=== PATIENT | male | born 1980 | race Caucasian/White ===

== ENCOUNTER 2021-08-10 17:16 | Emergency (ER) | payer OTHER, SELFPAY ==
--- NOTE | ~2021-08-10 | XR_ITS ---
EXAMINATION: XR HAND, RIGHT CLINICAL INFORMATION: Puncture wound to the base of the thumb anteriorly. COMPARISON: None TECHNIQUE: PA, lateral, and oblique views of the right hand. FINDINGS: No radiopaque foreign body. No air in the soft tissue. No fracture. No dislocation. Bone and joint are normal. XR/XR hand RT min 3V IMPRESSION: Normal right hand.
[2021-08-10 17:50] VITALS: BP 151/99; PULSE 75; RESP 18; TEMP 37; O2SAT 96; BMI 28.8
--- NOTE | 2021-08-10 19:15 | ED_ITS ---
HPI - Extremity Problem General Chief complaint: Extremity Injury, Upper Stated complaint: cut on palm of the right hand Time Seen by Provider: 08/10/21 18:59 Source: patient Mode of arrival: ambulatory Limitations: no limitations History of Present Illness HPI Narrative: PATIENT GOT PUNCTURE WOUND ON THE RIGHT ARM BY A DRILL BIT WHILE AT WORK, NO OTHER INJURY NO FOREIGN-BODY PATIENT DOES NOT REMEMBER HIS LAST TE TANUS SHOT Related Data Previous Rx's Medication Instructions Recorded amoxicillin 875 mg-potassium 1 tab PO BID #20 tab 08/10/21 clavulanate 125 mg tablet (Augmentin) Allergies Allergy/AdvReac Type Severity Reaction Status Date / Time No Known Allergies Allergy Verified 08/10/21 17:57 PMFSH Past Medical History Medical History (Updated 08/10/21 @ 19:17 by Tre Curiel MD) No pertinent past medical history Surgical History (Updated 08/10/21 @ 17:55 by Janice Malin) No pertinent past surgical history Social History Social History Advance Directives: No Advance Directives Information Provided: No Physical Exam Vital Signs: Vital Signs: Last Vital Signs Temp 98.6 F 08/10/21 17:50 Pulse 75 08/10/21 17:50 Resp 18 08/10/21 17:50 BP 151/99 H 08/10/21 17:50 Pulse Ox 96 08/10/21 17:50 Body Mass Index 28.8 Const: General: comfortable and no acute distress Extrem: Hand/finger images: 1. Puncture wound Right thenar eminence no bony deformity neurovascular intact MDM - Extremity (Nontraumatic) MDM Narrative Medical decision making narrative: Patient with puncture wound right thenar eminence x-ray negative for fracture foreign body part clean tetanus shot was given discharge patient home on antibiotics Augmentin Discharge Plan Discharge Clinical Impression: Puncture wound of right hand Qualifiers: Encounter type: initial encounter Foreign body presence: without foreign body Qualified Code(s): S61.431A - Puncture wound without foreign body of right hand, initial encounter Patient Disposition: Home, Self-Care Instructions: Puncture Wound (ED) Additional Instructions: Local care as advised Take antibiotics as prescribed You have received tetanus shot today which is good for 7-10 years Prescriptions: New amoxicillin-pot clavulanate [Augmentin] 875-125 mg tablet 1 tab PO BID Qty: 20 RF: 0 Interventions: ED Discharge Assessment Last Done: 08/10/21 19:31 Discharge Date/Time: 08/10/21 19:33
[2021-08-10] MEDS: Amoxicillin/Potassium Clav 875 MG TABLET PO (19:25)
[2021-08-10] MEDS: Diphth,Pertus(ACell),Tet Adult 0.5 ML SYRINGE IM (19:25)
== END 2021-08-10 19:33 | disposition home or self-care (01) ==
PROVIDERS: Emergency Provider Internal Medicine; PCP Physical Medicine & Rehabilitation
DX: S61.431A Puncture wound without foreign body of right hand, initial encounter (principal); W31.1XXA Contact with metalworking machines, initial encounter; Y93.89 Activity, other specified; Y92.89 Other specified places as the place of occurrence of the external cause; Y99.0 Civilian activity done for income or pay
CPT/HCPCS: 73130; 90471; 90715; 99284

== ENCOUNTER 2025-02-08 15:18 | Outpatient (AMB) | payer OTHER, SELFPAY ==
--- NOTE | 2025-02-08 15:20 | MHC.OFFVIS ---
Vital Signs 02/08/25 15:31 Height 6 ft 2 in Weight 230 lb BMI 29.5 BP 128/94 H Blood Pressure Location Lt brachial Position Sitting Pulse 78 Pulse Source Pulse Oximeter Pulse Oximetry (%) 97 Oxygen Delivery Method Room Air Intake Visit Reasons: Colonoscopy Screening Intake Note: NEW PATIENT for initial colo screening Chief Complaint; Pt does report increasing frequency of reflux which he has not had until recently. No specific triggers identified. Pt denies any additional sx or concerns at this time. No pertinent FMHx. Patient is taking an antihypertensive medication but is unsure as to the specific medication. Underwriting Manager Required: No Accompanied by: Self / Same As Patient Allergies No Known Allergies Allergy (Verified 02/08/25 15:21) HPI HPI Colonoscopy Screening: Details: 44 year old? male with no significant past medical history is here today for pre colonoscopy screening.? Patient was sent to us by his PCP.? This is his first colonoscopy screening.? Patient denies any gastrointestinal symptoms in the past or at present.? , however he does report occasional acid reflux depending on what he eats. Denies any personal or family history of gastrointestinal disease, colon polyps, or CRC.? Patient never had anesthesia in the past.? Negative for history of sleep apnea.? Denies any history of cardiac, renal, pulmonary, or hepatic disease.?? No history of infectious? diseases like hepatitis A, B, C, HIV or tuberculosis.? Patient is not on any anticoagulation [facility] Medical History HTN (hypertension) No pertinent past medical history Surgical History No pertinent past surgical history Family History Maternal Grandfather Prostate cancer Review of Systems Const Denies weight gain and Denies weight loss ENT Reports no additional complaints, Denies dysphagia and Denies odynophagia Card Reports no additional complaints Resp Reports no additional complaints GI Denies abdominal pain, Denies belching, Denies melena, Denies bloating, Denies change in bowel habits, Denies dysphagia, Denies excessive flatus, Denies dyspepsia, Reports heartburn (Occasional), Denies diarrhea, Denies loose stools, Denies nausea, Denies odynophagia and Denies vomiting Reports no additional complaints Musc Reports no additional complaints Neuro Reports no additional complaints Psych Reports no additional complaints Endo Reports no additional complaints Physical Exam Vital Signs: Last Vital Signs Pulse 78 02/08/25 15:31 BP 128/94 H 02/08/25 15:31 Pulse Ox 97 02/08/25 15:31 Oxygen Delivery Method Room Air 02/08/25 15:31 BMI result Body Mass Index 29.5 Const General: healthy appearing, no acute distress and well developed Nutritional Appearance: well nourished and obese Orientation/consciousness: patient oriented x3 Resp Effort & Inspection: normal respiratory effort, able to speak in complete sentences, no tracheal deviation and symmetric chest movement Auscultation: clear to auscultation bilaterally Cardio Rate: regular rate GI Inspection: Yes normal to inspection, No distended and Yes obesity Palpation (GI): Soft to palpation, not firm, nontender and No hepatosplenomegaly present Auscultation: normal bowel sounds General: Yes no CVA tenderness Back/Spine/Pelvis Back: no CVA tenderness Skin General skin exam: elasticity normal, turgor normal and dry skin Neuro General: patient oriented x3 Psych Appearance: grossly normal Mental Status: mental status grossly normal Assessment & Plan Assessment & Plan (1) Screen for colon cancer: Code(s): Z12.11 - Encounter for screening for malignant neoplasm of colon Plan Patient denies any GI, cardiac or respiratory symptoms.? However occasional acid reflux. Patient will try to avoid dietary triggers and late night snacking. Staying upright for minimum 3 hours after meals discussed with patient he will call us if his symptoms will get worse. Denies any issues with anesthesia in the past.? Denies any history of sleep apnea.? No history infectious diseases in the past or present.? Not on any anticoagulation therapy.? No family or personal history of colon cancer or polyps.? Patient denies melena, hematochezia, unintentional weight loss or ribbon like stools.? Discussed at length the pre-procedure,? prep, diet & medications as well as what to expect prior, during and after the procedure.?? Stressed the importance of good bowel prep.? Recommended the use of Vaseline or Calmoseptine OTC & baby wipes with bowel movements to promote comfort.? ?Patient verbalizes understanding and agrees to plan of care.? He was given the opportunity to ask questions and all questions answered.? We will see him after the procedure.? Medications: New bisacodyl (Dulcolax (bisacodyl)) take 4 tabs at noon the day before your colonoscopy 20 mg (4 x 5 mg) PO ONCE 4 tabs 0RF 1 day Z12.11 - Encounter for screening for malignant neoplasm of colon polyethylene glycol 3350 (Miralax) As directed by gastroenterology department at [facility] 238 grams PO ONCE 238 grams 0RF Z12.11 - Encounter for screening for malignant neoplasm of colon Coding Level of Care Code New Pt Level 3 (32756) Diagnoses Screen for colon cancer Z12.11 Time Spent (min) 40 Comment 30 minutes spent with patient and additional 10 minutes spent reviewing his records
[2025-02-08 15:31] VITALS: BP 128/94; PULSE 78; O2SAT 97; BMI 29.5
== END 2025-02-08 16:10 | disposition home or self-care (01) ==
LOC: HO.HGI 15:19
PROVIDERS: PCP Physical Medicine & Rehabilitation; Visit Provider Nurse Practitioner Family
DX: Z01.818 Encounter for other preprocedural examination (principal); Z12.11 Encounter for screening for malignant neoplasm of colon; K21.9 Gastro-esophageal reflux disease without esophagitis
CPT/HCPCS: 99202

== ENCOUNTER → 2025-02-08 15:18 | Outpatient (BNVA) | payer OTHER, SELFPAY | PROVIDERS: PCP Physical Medicine & Rehabilitation; Visit Provider Nurse Practitioner Family ==